=== PATIENT | female | born 1965 | race Caucasian/White ===

== ENCOUNTER → 2019-12-29 15:38 | Outpatient (BNVA) | payer OTHER, SELFPAY | PROVIDERS: Family Provider Internal Medicine; Visit Provider Dermatology | DX: L57.0 Actinic keratosis (principal); D23.9 Other benign neoplasm of skin, unspecified; L73.8 Other specified follicular disorders; D36.9 Benign neoplasm, unspecified site; Z80.8 Family history of malignant neoplasm of other organs or systems | CPT/HCPCS: 17000; 17003; 99203 ==

== ENCOUNTER → 2020-03-07 15:55 | Outpatient (BNVA) | payer OTHER, SELFPAY | PROVIDERS: Family Provider Internal Medicine; PCP Nurse Practitioner Family; Referring Provider Nurse Practitioner Family; Visit Provider Internal Medicine | DX: E04.2 Nontoxic multinodular goiter (principal); R53.83 Other fatigue | CPT/HCPCS: 99203 ==

== ENCOUNTER → 2020-03-21 13:10 | Outpatient (BNVA) | payer OTHER, SELFPAY | PROVIDERS: Family Provider Internal Medicine; PCP Nurse Practitioner Family; Referring Provider Nurse Practitioner Family; Visit Provider Nurse Practitioner Family | DX: N30.20 Other chronic cystitis without hematuria (principal) | CPT/HCPCS: 81003 ==

== ENCOUNTER → 2020-05-03 15:12 | Outpatient (BNVA) | payer OTHER, SELFPAY | PROVIDERS: Family Provider Internal Medicine; PCP Nurse Practitioner Family; Visit Provider Urology | DX: N39.0 Urinary tract infection, site not specified (principal) | CPT/HCPCS: 81003 ==

== ENCOUNTER 2020-05-30 15:06 | Outpatient (CLI) | payer OTHER, SELFPAY ==
--- NOTE | 2020-05-30 15:12 | MM_ITS ---
WS: [id number] SCREENING DIGITAL MAMMOGRAM WITH CAD HISTORY: SCREENING COMPARISON: 08/31/2018 and 11/09/2012 and 04/08/2016 Bilateral CC and MLO views submitted. Computer aided detection analyzed. Breast composition: There are scattered areas of fibroglandular density. No suspicious masses, microc alcifications or architectural distortion. MM/[place] [id number] IMPRESSION: BI-RADS: 1-Negative FOLLOW UP: 1 Year Follow-up
--- NOTE | 2020-05-30 15:42 | XR_ITS ---
WS: [id number] SCREENING DEXA SCAN [employer] CLINICAL INFORMATION: POST MENOPAUSAL COMPARISON: None. FINDINGS: The L1-L4 bone mineral density measures 1.331 g/cm2. This corresponds to a T score score of 1.3 and Z score of 1.4. Left femoral neck bone mineral density measures 1.036 g/cm2. This corresponds to a T score of 0.2 and Z score of 0.4. Right femoral neck bone mineral density measures 1.099 g/cm2. This corresponds to a T score 0.7of and Z score of 0.9. Mean femoral neck bone mineral density measures 1.067 g/cm2. This corresponds to a T score of 0.5 and Z score of 0.7. XR/XR DEXA axial skeleton* [id number] IMPRESSION: Normal bone mineralization. Patient's FRAX calculated 10 year probability for major osteoporotic fracture i s 4.8 % and osteoporotic hip fracture is 0.1%.
== END 2020-05-30 15:07 | disposition home or self-care (01) ==
LOC: RADSHAW 15:10
PROVIDERS: PCP Nurse Practitioner Family; Visit Provider Nurse Practitioner Family
DX: Z12.31 Encounter for screening mammogram for malignant neoplasm of breast (principal); Z78.0 Asymptomatic menopausal state
CPT/HCPCS: 77067; 77080

== ENCOUNTER → 2020-08-02 15:48 | Outpatient (BNVA) | payer OTHER, SELFPAY | PROVIDERS: PCP Nurse Practitioner Family; Visit Provider Urology | DX: N39.0 Urinary tract infection, site not specified (principal) | CPT/HCPCS: 81003 ==

== ENCOUNTER → 2020-10-03 16:05 | Outpatient (BNVA) | payer OTHER, SELFPAY | PROVIDERS: PCP Nurse Practitioner Family; Visit Provider Urology | DX: N39.0 Urinary tract infection, site not specified (principal) | CPT/HCPCS: 81003 ==

== ENCOUNTER → 2021-01-09 16:16 | Outpatient (BNVA) | payer OTHER, SELFPAY | PROVIDERS: PCP Nurse Practitioner Family; Visit Provider Urology | DX: N39.0 Urinary tract infection, site not specified (principal) | CPT/HCPCS: 81003 ==

== ENCOUNTER 2021-02-23 07:39 | Day surgery (SDC) | payer OTHER, SELFPAY ==
[2021-02-20 10:24] VITALS: BMI 29.1
--- NOTE | 2021-02-23 07:48 | ANES.PREANE2 ---
Pre-Anesthetic Assessment Pre-Anesthetic Assessment: Height/Weight: Height 1.7 m Weight 84.368 kg Preop Diagnosis: abdominal pain Proposed Procedure: Operation Date: 02/23/21 09:15 Proposed Procedures p EGD K90.0 K21.00(Not Applicable) - Mina Salinas MD Familial anesthetic complications: none Was Beta Krystian taken within 24 hours: N/A Was Clonidine taken within 24 hours: N/A Last intake: > 8 hrs Social: Social History: No alcohol and No tobacco Exam: Pre-Anes Outpt Exam: alert, oriented x 3, clear to auscultation bilaterally and regular rate & rhythm Airway: Cervical ROM: WNL MP: 1 Dentition: Partials GI: Comments: celiac's disease Anesthetic Plan: ASA status: 2 Anesthesia: MAC Risk of > 500 ml blood loss (7ml/kg in children): No PFSH Anesthesia PFSH: Medical History Anxiety Chronic osteoarthritis Cystitis Depression GERD (gastroesophageal reflux disease) IBS (irritable bowel syndrome) Multiple thyroid nodules No pertinent past medical history Recurrent UTI Restless legs syndrome (RLS) Thyroid enlarged Surgical History Hx of bladder repair surgery Hx of breast biopsy Hx of hysterectomy Family History Father CAD (coronary artery disease) Social History Smoking and tobacco status: former smoker Alcohol intake: never Adopted: No Caregiver/support person: No Lives independently: No Marital status: / Data Anesthesia Cardiac Studies: No Data to Display
[2021-02-23 08:09] VITALS: BP 112/59; PULSE 63; RESP 18; TEMP 36.1; O2SAT 97
[2021-02-23] MEDS: sodium chloride 0.9% 1,000 ML 30 ML IV (08:09)
--- NOTE | 2021-02-23 09:52 | P.HP_ITS ---
Providers/Chief Complaint Primary Care Provider: HEIDI Newton Chief Complaint: egd History of Present Illness Lindsey Alexander is a 55 year old female Review of Systems General: Reports: 10 or more systems reviewed and unremarkable except in HPI and below Const: Denies: fever(s) Card: Denies: chest pain or irregular heart rhythm Resp: Denies: dyspnea GI: Reports: heartburn Medications/Allergies Home Medications Medication Instructions Recorded Confirmed Last Taken Type lactobacillus combination no.8 3 3,000 mmu cells PO DAILY 05/03/20 02/20/21 02/22/21 History billion cell capsule multivitamin 1 tab PO DAILY 01/09/21 02/20/21 Unknown History nitrofurantoin monohyd/m-cryst 100 mg PO DAILY 02/20/21 02/20/21 02/22/21 History Allergies Allergy/AdvReac Type Severity Reaction Status Date / Time No Known Allergies Allergy Verified 02/23/21 08:07 PFSH PFSH: Medical History (Updated 02/23/21 @ 10:14 by Mina Salinas MD) Anxiety Chronic osteoarthritis Cystitis Depression GERD (gastroesophageal reflux disease) IBS (irritable bowel syndrome) Multiple thyroid nodules No pertinent past medical history Recurrent UTI Restless legs syndrome (RLS) Thyroid enlarged Surgical History Hx of bladder repair surgery Hx of breast biopsy Hx of hysterectomy Family History Father CAD (coronary artery disease) Social History Smoking and tobacco status: former smoker Alcohol intake: never Adopted: No Caregiver/support person: No Lives independently: No Marital status: / Dietary Habits: Caffeine: Yes Vital Signs Vitals Signs: Last Vital Signs Temp 97.0 F L 02/23/21 08:09 Pulse 63 02/23/21 08:09 Resp 18 02/23/21 08:09 BP 112/59 02/23/21 08:09 Pulse Ox 97 02/23/21 08:09 Physical Exam Const: COMMON NORMALS: no acute distress and patient oriented x3 GENERAL APPEARANCE: cooperative, comfortable and well developed HENMT: COMMON NORMALS: normocephalic and moist oral mucous membranes HEAD & SCALP: normocephalic Chest: COMMONS NORMALS: normal inspection of the chest Resp: COMMON NORMALS: normal respiratory effort and clear to auscultation bilaterally AUSCULTATION: clear to auscultation bilaterally Cardio: COMMON NORMALS: regular rate, regular rhythm, No gallops present (Cardio), No murmurs present (Cardio) and No rub (Cardio) RATE: regular rate RHYTHM: regular rhythm Extremity: COMMON NORMALS: normal to inspection Neuro: COMMON NORMALS: patient oriented x3 and no focal motor deficits Skin: COMMON NORMALS: no rashes or lesions noted GENERAL SKIN EXAM: no rashes or lesions noted A&P Assessment and plan (1) GERD (gastroesophageal reflux disease): We discussed the risks of the procedure including the risks of bleeding and perforation. The patient had no further questions and wishes to proceed. Status: Acute (2) Celiac sprue: Status: Acute Coding Level of Care Code Acute Microbiology Quality Control Technician for [facility] Diagnoses GERD (gastroesophageal reflux disease) K21.9 Celiac sprue K90.0
[2021-02-23 10:15] VITALS: BP 97/72; PULSE 66; RESP 18; TEMP 36.1; O2SAT 96
[2021-02-23 10:26] VITALS: BP 98/62; PULSE 59; RESP 20; O2SAT 97
--- NOTE | 2021-02-23 12:21 | ANE.PACU2 ---
Inpatient post-anesthesia follow up: Airway intact: Yes Vital signs: Temperature 97.0 F Pulse Rate 59 Respiratory Rate 20 Blood Pressure 98/62 Pulse Oximetry 97 Oxygen Delivery Me thod Room Air Oxygen Flow Rate Fraction of Inspir ed Oxygen Hydration adequate: Yes Nausea and vomiting: No Pain level: 1 Mental status: Baseline
== END 2021-02-23 10:40 | disposition home or self-care (01) ==
PROVIDERS: PCP Nurse Practitioner Family; Visit Provider Family Medicine
PROC: 0DJ08ZZ Inspection of Upper Intestinal Tract, Via Natural or Artificial Opening Endoscopic (ICD-10-PCS; CPT 43235; principal; 2021-02-23 09:15)
DX: K21.9 Gastro-esophageal reflux disease without esophagitis (principal); K90.0 Celiac disease; K29.80 Duodenitis without bleeding; F41.9 Anxiety disorder, unspecified; F32.9 Major depressive disorder, single episode, unspecified; Z82.49 Family history of ischemic heart disease and other diseases of the circulatory system; Z87.891 Personal history of nicotine dependence
CPT/HCPCS: 12345; 43239; 88305; 96360; J2704; J7030

== ENCOUNTER → 2021-03-20 16:28 | Outpatient (BNVA) | payer OTHER, SELFPAY | PROVIDERS: PCP Nurse Practitioner Family; Visit Provider Nurse Practitioner Family | DX: N39.0 Urinary tract infection, site not specified (principal) | CPT/HCPCS: 81003 ==

== ENCOUNTER 2021-08-10 14:38 | Outpatient (CLI) | payer OTHER, SELFPAY ==
--- NOTE | 2021-08-10 14:46 | MM_ITS ---
WS: [id number] BILATERAL 3D TOMOSYNTHESIS DIGITAL SCREENING MAMMOGRAPHY WITH CAD CLINICAL INFORMATION: SCREENING HISTORY: Screening mammogram. No current complaints. COMPARISON: May 30, 2020 TECHNIQUE: Bilateral CC and MLO views. FINDINGS: Scattered fibroglandular densities bilaterally. Benign lucent centered calcification RIGHT breast. St able intramammary lymph node upper outer RIGHT breast. No suspicious focal mass, asymmetry, calcifica tions, or architectural distortion. No evidence of malignancy. MM/[place] [id number] IMPRESSION: BI-RADS: 2-Benign FOLLOW UP: 1 Year Follow-up Recommend return to annual screening mammography.
== END 2021-08-10 14:39 | disposition home or self-care (01) ==
LOC: RADSHAW 14:41
PROVIDERS: PCP Nurse Practitioner Family; Visit Provider Nurse Practitioner Family
DX: Z12.31 Encounter for screening mammogram for malignant neoplasm of breast (principal)
CPT/HCPCS: 77063; 77067

== ENCOUNTER 2022-07-04 16:17 | Emergency (ER) | payer OTHER, SELFPAY ==
[2022-07-04 16:23] VITALS: BP 141/81; PULSE 66; RESP 18; TEMP 36.7; O2SAT 97
--- NOTE | 2022-07-04 16:26 | ECG_ITS ---
[facility] Test Date: 2022-07-04 Pat Name: Lindsey Alexander Department: Room: Gender: Female Geriatric Physical Therapist: : 1965 Requested By: Jon Ngo Order Number: [id number] Malathi MD: Mindy Bonilla M.D. Measurements Intervals [place] Rate: 64 P: 49 [place]: 158 QRS: 37 QRSD: 90 T: 55 QT: 422 QTc: 437 Interpretive Statements SINUS RHYTHM Compared to ECG 04/03/2018 21:00:30 Sinus bradycardia no longer present Electronically Signed On 07-05-2022 7:54:42 LIBRARY CLERK TALKING BOOKS by Mindy Bonilla M.D. [id number]
--- NOTE | 2022-07-04 18:47 | XRR_ITS ---
PROCEDURE INFORMATION: Exam: XR Chest Exam date and time: 07/04/2022 7:05 PM Age: 57 years old Clinical indication: Pain; Chest pressure; Additional info: Cp on left side, dizzy, since today TECHNIQUE: Imaging protocol: Radiologic exam of the chest. Views: 1 view. COMPARISON: CR XR ribs RT mn 3V w CXR1V [id number] 08/30/2020 4:16 PM FINDINGS: Lungs: Unremarkable. No consolidation. Pleural spaces: Unremarkable. No pleural effusion. No pneumothorax. Heart/Mediastinum: Unremarkable. No cardiomegaly. Bones/joints: Unremarkable. XR/XR chest 1V portable [id number] IMPRESSION: No acute findings.
--- NOTE | 2022-07-04 19:12 | W.ED.CHESTPA ---
HPI - Chest Pain General: Chief Complaint: Chest Pain Stated Complaint: chest pain Time Seen by Provider: 07/04/22 19:02 History of Present Illness: Ms. Alexander is a 57-year-old lady with thyroid disorder presenting to the emergency department for chest pain. She reports a few day history of generalized not feeling well, she describes an unsteady feeling and pain in the left ear as well as headaches which are not typical for her. She was seen in clinic earlier and diagnosed with ear infection however also reported that she had some chest discomfort radiating to left shoulder blade from the substernal region associated with paresthesias in the left arm and was referred to the emergency department for further evaluation. Denies frequent similar episodes in the past. Does have a remote history of smoking though no longer smokes and also endorses positive family history for early coronary artery disease Onset (ago): day(s) Timing of current episode: constant Prior episodes: No Onset: during rest Pain location: substernal Pain radiation: left arm, left shoulder and left scapula Severity: moderate Relieving factors: nothing Exacerbating factors: nothing Review of Systems General: Reports: 10 or more systems reviewed and unremarkable except in HPI and below PFSH ED PFSH: Medical History Anxiety Chronic osteoarthritis Cystitis Depression GERD (gastroesophageal reflux disease) IBS (irritable bowel syndrome) Multiple thyroid nodules No pertinent past medical history Recurrent UTI Restless legs syndrome (RLS) Thyroid enlarged Surgical History Hx of bladder repair surgery Hx of breast biopsy Hx of hysterectomy Family History Father CAD (coronary artery disease) Social History Smoking and tobacco status: former smoker Alcohol intake: never Adopted: No Caregiver/support person: No Lives independently: No Marital status: / Physical Exam Const: COMMON NORMALS: patient oriented x3 and alert GENERAL APPEARANCE: cooperative and well developed HENMT: COMMON NORMALS: normocephalic, atraumatic and TM's normal bilaterally HEAD & SCALP: normocephalic and atraumatic TYMPANIC MEMBRANE: TM's normal bilaterally THROAT: posterior oropharynx normal Eye: COMMON NORMALS: conjunctivae normal CONJUNCTIVA: Yes conjunctivae normal SCLERA: sclerae normal Neck/C-Spine: COMMON NORMALS: supple GENERAL: Yes trachea midline Resp: COMMON NORMALS: clear to auscultation bilaterally EFFORT & INSPECTION: Yes able to speak in complete sentences AUSCULTATION: clear to auscultation bilaterally Cardio: COMMON NORMALS: regular rate and regular rhythm RATE: regular rate RHYTHM: regular rhythm GI: COMMON NORMALS: Soft to palpation PALPATION: Yes Soft to palpation and No Tenderness to palpation present (GI) PERCUSSION: normal to percussion Extremity: GENERAL: Yes normal exam except as noted and No edema Neuro: COMMON NORMALS: patient oriented x3, CN's II-XII intact bilaterally, moves all extremities, no focal motor deficits and no sensory deficits noted SENSORIUM/ORIENTATION: Yes alert and No Orientation impaired Psych: COMMON NORMALS: mental status grossly normal and Normal thought process present THOUGHT PROCESS: Normal thought process present Course Vital Signs: Vital signs: Vital Signs Temperature 98.1 F 07/04/22 16:23 Pulse Rate 59 L 07/04/22 22:00 Respiratory Rate 16 07/04/22 22:00 Blood Pressure 123/66 07/04/22 22:00 Pulse Oximetry 96 07/04/22 22:00 Oxygen Delivery Me thod 07/04/22 20:30 MDM - Chest Pain Medical Decision Making 57-year-old lady presenting with chest pain and generalized illness. She is currently being treated for an ear infection and is on antibiotics. Patient is nontoxic on exam. EKG notable for sinus rhythm, bradycardia, normal axis and intervals, no STEMI. Similar to prior. No significant hematologic or metabolic abnormalities. Initial and 2-hour delta troponin negative. Chest x-ray with no lobar consolidation or pneumothorax. CT head negative for acute intracranial pathology. Most likely etiology of patient's symptoms is unclear. She is low risk by heart score. Neurologic symptoms likely secondary to otitis media. Patient feels improved with fluids. The results of ED evaluation were discussed with the patient including prescriptions and/or symptomatic cares (if applicable) including appropriate and responsible use, followup plan, and return precautions. The patient verbalized understanding and felt safe for discharge. Medical Records I reviewed the patient's medical records. Lab Data I reviewed the patient's lab results. 07/04/22 19:28 Radiology Impressions Chest X-Ray 07/04/22 18:47 IMPRESSION: No acute findings. Head CT 07/04/22 19:30 IMPRESSION: No acute intracranial abnormality. Laboratory Results WBC 6.0 10^3/uL (4.0-10.0) 07/04/22 19: RBC 4.05 10^6/uL (4.1-5.3) L 07/04/22: Hgb 12.3 g/dL (11.5-15.3) 07/04/22: Hct 37.1 % (37.0-47.0) 07/04/22: MCV 91.6 fl (81-99) 07/04/22: MCH 30.4 pg (28.0-34.0) 07/04/22: MCHC 33.2 g/dL (30.0-36.0) 07/04/22: RDW 13.2 % (12.1-15.1) 07/04/22: Plt Count 243 10^3/cmm (130-400) 07/04/22: MPV 11.9 fL (7.4-10.4) H 07/04/22: Neut % (Auto) 38.2 % 07/04/22: Lymph % (Auto) 48.2 % 07/04/22: [place] % (Auto) 9.9 % 07/04/22: Eos % (Auto) 2.8 % 07/04/22: Baso % (Auto) 0.7 % 07/04/22: Neut # (Auto) 2.31 10^3/uL (1.8-7.7) 07/04/22: Lymph # (Auto) 2.9 10^3/uL (0.8-4.8) 07/04/22: [place] # (Auto) 0.6 10^3/uL (0.2-0.9) 07/04/22 19: Eos # (Auto) 0.2 10^3/uL (0.0-0.8) 07/04/22: Baso # (Auto) 0.0 10^3/uL (0.0-0.1) 02/09/23 19:28 Nucleated RBC % (auto) 0 % 07/04/22 19:28 Nucleated RBCs # 0.0 /100WBC 07/04/22 19:28 Sodium 141 mmol/L (136-145) 07/04/22 19:28 Potassium 4.2 mmol/L (3.5-5.1) 07/04/22 19:28 Chloride 105 mmol/L (98-107) 07/04/22 19:28 Carbon Dioxide 26 mmol/L (22-29) 07/04/22 19:28 Anion Gap 14.2 (5-19) 07/04/22 19:28 BUN 11 mg/dL (6-20) 07/04/22 19:28 Creatinine 0.8 mg/dL (0.5-0.9) 07/04/22 19: GFR Calculation 73.9 mL/min (90-130) L 07/04/22 19:28 Glucose 96 mg/dL (65-115) 07/04/22 19:28 Calculated Osmolality 291 mOsm/kg (285-295) 07/04/22 19:28 Calcium 9.1 mg/dL (8.5-10.5) 07/04/22 19:28 Total Bilirubin 0.3 mg/dL (0.15-1.2) 07/04/22 19:28 AST 26 U/L (0-32) 07/04/22 19:28 ALT 25 U/L (0-33) 07/04/22 19:28 Alkaline Phosphatase 83 U/L (35-105) 07/04/22 19:28 Troponin T Baseline 6 ng/L (0-10) 07/04/22 19:28 Troponin T 120 Minute 6.52 ng/L (0-10) 07/04/22 21:00 Delta Troponin T 0.52 ABS# (0-10) 07/04/22 21:00 Total Protein 7.2 g/dL (6.6-8.7) 07/04/22 19:28 Albumin 4.5 g/dL (3.5-5.2) 07/04/22 19:28 Globulin 2.7 g/dL (1.3-4.6) 07/04/22 19:28 Lipase 49 U/L (13-60) 07/04/22 19:28 TSH 2.65 uIU/mL (0.27-4.20) 07/04/22 19:28 Discharge Plan Discharge Patient Disposition: Home Clinical Impression: Headache, Chest pain, Acute otitis media Condition: Stable Prescriptions: No Action multivitamin Tablet 1 tab PO DAILY omega-3 fatty acids 1,000 mg capsule 1,000 mg PO DAILY Adult Probiotic 3 billion cell capsule 3,000 mmu cells PO DAILY Rx Instructions: administer with a meal Discharge Orders: Discharge ED (Routine); Ordered 07/04/22 Ordered By: Micheal Varela Referrals: Merry Flower FNP [Primary Care Provider] - Discharge Diet: Usual diet Discharge Activity: Resume usual activity Patient Instructions: Chest Pain (ED), Acute Headache (ED) Activity Restrictions/Additional Instructions: Thank you for visiting the emergency department. You are seen and for chest pain, headache, in the context of recently diagnosed ear infection. The exact cause your symptoms is unclear though as discussed you are low risk for major adverse cardiac events. I will message case management for further outpatient testing. Please follow-up with your primary care provider. Return to the emergency department for anything that you are concerned about and feel needs emergency department evaluation. Coding Level of Care Code ED Tomb Maker Helper for Jesenia Fisher
[2022-07-04 19:25] VITALS: BP 120/61; PULSE 67; RESP 20; O2SAT 97
--- NOTE | 2022-07-04 19:30 | CTR_ITS ---
PROCEDURE INFORMATION: Exam: CT Head Without Contrast Exam date and time: 07/04/2022 7:49 PM Age: 57 years old Clinical indication: Weakness, extremity; Left; Additional info: Dizzy, L arm paresthesia, headache TECHNIQUE: Imaging protocol: Computed tomography of the head without contrast. Radiation optimization: All CT scans at this facility use at least one of these dose optimization techniques: automated exposure control; mA and/or kV adjustment per patient size (includes targeted exams where dose is matched to clinical indication); or iterative reconstruction. Other protocol: This patient has received 0 known CTs and 0 known cardiac nuclear medicine studies in the 12 months prior to the current study. COMPARISON: US soft tissue head neck [id number] 01/10/2017 8:27 AM RADIATION DOSE METRICS: Total DLP (mGy-cm): 1066.98 FINDINGS: Brain: Normal. No hemorrhage. Unremarkable white matter. No mass effect. Cerebral ventricles: No ventriculomegaly. Paranasal sinuses: Visualized sinuses are unremarkable. No fluid levels. Mastoid air cells: Visualized mastoid air cells are well aerated. Bones/joints: Unremarkable. No acute fracture. Soft tissues: Unremarkable. CT/CT head wo con* [id number] IMPRESSION: No acute intracranial abnormality.
[2022-07-04] MEDS: sodium chloride 0.9% 1,000 ML 999 ML IV (19:34)
[2022-07-04 19:54] LABS: Basophils % 0.7 %; Eosinophils # 0.2 10^3/uL (0.0-0.8); Eosinophils % 2.8 %; Hematocrit 37.1 % (37.0-47.0); Hemoglobin 12.3 g/dL (11.5-15.3); Lymphocytes # 2.9 10^3/uL (0.8-4.8); Lymphocytes % 48.2 %; Mean Corpuscular HGB Conc 33.2 g/dL (30.0-36.0); Mean Corpuscular Hemoglobin 30.4 pg (28.0-34.0); Mean Corpuscular Volume 91.6 fl (81-99); Mean Platelet Volume 11.9 fL (7.4-10.4); Monocytes # 0.6 10^3/uL (0.2-0.9); Monocytes % 9.9 %; Neutrophils # 2.31 10^3/uL (1.8-7.7); Neutrophils % 38.2 %; Nucleated Red Blood Cells % 0 %; Platelet Count 243 10^3/cmm (130-400); Red Blood Count 4.05 10^6/uL (4.1-5.3); Red Cell Distribution Width 13.2 % (12.1-15.1)
[2022-07-04 20:04] LABS: Alanine Aminotransferase 25 U/L (0-33); Albumin Level 4.5 g/dL (3.5-5.2); Alkaline Phosphatase 83 U/L (35-105); Anion Gap 14.2 (5-19); Aspartate Amino Transferase 26 U/L (0-32); Blood Urea Nitrogen 11 mg/dL (6-20); Calcium 9.1 mg/dL (8.5-10.5); Carbon Dioxide 26 mmol/L (22-29); Chloride 105 mmol/L (98-107); Globulin 2.7 g/dL (1.3-4.6); Glomerular Filtration Rate 73.9 mL/min (90-130); Glucose 96 mg/dL (65-115); Lipase 49 U/L (13-60); Osmolality Calculated 291 mOsm/kg (285-295); Potassium 4.2 mmol/L (3.5-5.1); Sodium 141 mmol/L (136-145); Thyroid Stimulating Hormone 2.65 uIU/mL (0.27-4.20); Total Bilirubin 0.3 mg/dL (0.15-1.2); Total Protein 7.2 g/dL (6.6-8.7)
--- NOTE | 2022-07-04 20:05 | ECG_ITS ---
[facility] Test Date: 2022-07-04 Pat Name: Lindsey Alexander Department: Room: Gender: Female Customer Sales Distributor: : 1965 Requested By: Loren Myers Order Number: [id number] Malathi MD: Mindy Bonilla M.D. Measurements Intervals [place] Rate: 59 P: 61 CT: 165 QRS: 43 QRSD: 96 T: 55 QT: 433 QTc: 430 Interpretive Statements SINUS BRADYCARDIA Compared to ECG 07/04/2022 16:36:05 Sinus rhythm no longer present Electronically Signed On 07-05-2022 7:52:29 FRONTEND ENGINEER by Mindy Bonilla M.D. [id number]
[2022-07-04 20:18] LABS: Troponin(5th) Baseline 6 ng/L (0-10)
[2022-07-04 20:30] VITALS: BP 120/60; PULSE 69; RESP 15; O2SAT 92
--- NOTE | 2022-07-04 20:47 | ECG_ITS ---
[facility] Test Date: 2022-07-04 Pat Name: Lindsey Alexander Department: Room: Gender: Female Pmo Analyst: : 1965 Requested By: Loren Myers Order Number: [id number] Malathi MD: Mindy Bonilla M.D. Measurements Intervals [place] Rate: 58 P: 51 [place]: 163 QRS: 45 QRSD: 96 T: 57 QT: 464 QTc: 457 Interpretive Statements SINUS BRADYCARDIA POSSIBLE INFERIOR MYOCARDIAL INFARCTION , PROBABLY OLD [30 ms Q WAVE IN II/aVF] Compared to ECG 07/04/2022 20:05:38 Myocardial infarct finding now present Electronically Signed On 07-05-2022 8:12:44 PROFESSOR OF ARCHAEOLOGY by Mindy Bonilla M.D. [id number]
[2022-07-04 21:38] LABS: Troponin 5 2HR 6.52 ng/L (0-10)
[2022-07-04 21:41] LABS: Troponin 5 2HR Delta 0.52 ABS# (0-10)
[2022-07-04 22:00] VITALS: BP 123/66; PULSE 59; RESP 16; O2SAT 96
== END 2022-07-04 22:01 | disposition home or self-care (01) ==
PROVIDERS: Emergency Medicine; Emergency Provider Emergency Medicine; PCP Nurse Practitioner Family
DX: R07.9 Chest pain, unspecified (principal); R51.9 Headache, unspecified; H66.92 Otitis media, unspecified, left ear; Z87.891 Personal history of nicotine dependence
CPT/HCPCS: 70450; 71045; 80053; 83690; 84443; 84484; 85025; 93005; 96360; 99285; J7030

== ENCOUNTER → 2022-10-29 15:58 | Outpatient (BNVA) | payer OTHER, SELFPAY | PROVIDERS: PCP Nurse Practitioner Family; Referring Provider Nurse Practitioner Family; Visit Provider Orthopaedic Surgery | DX: M54.9 Dorsalgia, unspecified (principal); M54.50 Low back pain, unspecified | CPT/HCPCS: 72110 ==

== ENCOUNTER 2022-12-06 13:31 | Outpatient (CLI) | payer OTHER, SELFPAY ==
--- NOTE | 2022-12-06 13:45 | MR_ITS ---
WS: [id number] MRI LUMBAR SPINE NONCONTRAST TECHNIQUE: Sagittal T1, T2 and STIR imaging. Axial T1 and T2 imaging. CLINICAL INFORMATION: M54.9 - Dorsalgia, unspecified. COMPARISON: None. FINDINGS: Mild lumbar curve. No acute compression. Disc bulging worse at L3-L5. No high-grade central canal herbert nosis. L1-L2: Mild annular bulging with endplate Schmorl's nodes. Mild facet arthropathy. Spinal canal and f oramen are patent. L2-L3: Mild annular bulging. Moderate facet arthropathy with ligamentum flavum hypertrophy. Mild cent ral canal stenosis. Narrowing of the subarticular recess bilaterally. Foramen are patent. L3-L4: Mild annular bulging with slight impingement on the LEFT subarticular recess and traversing LE FT L4 nerve root. Recommend correlation LEFT L4 nerve root symptoms. Moderate facet arthropathy. Mild bilateral foraminal narrowing RIGHT greater than LEFT. L4-L5: Mild disc bulging with mild central canal stenosis. Slight impingement traversing L5 nerve catherine ts bilaterally. RIGHT foraminal protrusion slightly impinges the exiting RIGHT L4 nerve root. Mild RI GHT foraminal narrowing. LEFT foramen is patent. L5-S1: Mild disc osteophyte complex with endplate ridging. Slight impingement on the traversing S1 ne rve root in the subarticular recess. Moderate facet arthropathy. Moderate RIGHT and no significant LE FT foraminal narrowing. Visualized pelvic bony structures: Normal. Paravertebral soft tissues: Normal. MR/MR lumbar spine wo con* [id number] IMPRESSION: 1. Mild central canal stenosis L2-L3 and L4-L5 due to disc bulging in combinat ion with facet arthropathy and ligamentum flavum hypertrophy. 2. Disc bulging L3-L4 with slight impingement on the LEFT subarticular recess and traversing LEFT L4 nerve root. 3. Disc osteophyte complex L5-S1 impinges the RIGHT S1 nerve root in the subar ticular recess. 4. Small RIGHT foraminal protrusion L3-L4 slightly impinges the exiting RIGHT L3 nerve root proximally. 5. Mild to moderate RIGHT L4-L5 and moderate RIGHT L5-S1 foraminal narrowing w ith impingement on the exiting RIGHT L4 and RIGHT L5 nerve roots respectively. 6. Moderate facet arthropathy worse at L2-L3 and L5-S1.
== END 2022-12-06 13:32 | disposition home or self-care (01) ==
PROVIDERS: PCP Nurse Practitioner Family; Visit Provider Orthopaedic Surgery
DX: M48.061 Spinal stenosis, lumbar region without neurogenic claudication (principal); M51.36 Other intervertebral disc degeneration, lumbar region; M51.26 Other intervertebral disc displacement, lumbar region
CPT/HCPCS: 72148

== ENCOUNTER 2022-12-27 13:43 | Outpatient (CLI) | payer OTHER, SELFPAY ==
--- NOTE | 2022-12-27 13:49 | MM_ITS ---
WS: [id number] BILATERAL 3D TOMOSYNTHESIS DIGITAL SCREENING MAMMOGRAPHY WITH CAD CLINICAL INFORMATION: SCREENING HISTORY: Screening mammogram. No current complaints. COMPARISON: 2021 TECHNIQUE: Bilateral CC and MLO views. FINDINGS: Scattered fibroglandular densities bilaterally. No suspicious focal mass, asymmetry, calcifications, or architectural distortion. No evidence of malignancy. A few incidental punctate and lucent centered calcifications. MM/[place] [id number] IMPRESSION: BI-RADS: 2-Benign FOLLOW UP: 1 Year Follow-up Recommend return to annual screening mammography.
== END 2022-12-27 13:44 | disposition home or self-care (01) ==
LOC: RAD 13:47 → MOBLMAM 13:48
PROVIDERS: PCP Nurse Practitioner Family; Visit Provider Nurse Practitioner Family
DX: Z12.31 Encounter for screening mammogram for malignant neoplasm of breast (principal)
CPT/HCPCS: 77063; 77067

== ENCOUNTER → 2023-04-09 14:57 | Outpatient (BNVA) | payer OTHER, SELFPAY | PROVIDERS: PCP Nurse Practitioner Family; Visit Provider Registered Nurse Neonatal Intensive Care | DX: R10.9 Unspecified abdominal pain (principal) | CPT/HCPCS: 81000 ==

== ENCOUNTER → 2023-11-07 07:56 | Outpatient (BNVA) | payer OTHER, SELFPAY | PROVIDERS: PCP Nurse Practitioner Family; Visit Provider Podiatrist Foot & Ankle Surgery | DX: M79.671 Pain in right foot (principal); M79.672 Pain in left foot; M21.612 Bunion of left foot; B35.1 Tinea unguium | CPT/HCPCS: 73630 ==

== ENCOUNTER 2024-01-27 15:07 | Outpatient (CLI) | payer OTHER, SELFPAY ==
[2024-01-27 16:11] LABS: Basophils % 0.7 %; Eosinophils # 0.1 10^3/uL (0.0-0.8); Eosinophils % 2.3 %; Lymphocytes # 2.3 10^3/uL (0.8-4.8); Lymphocytes % 39.2 %; Mean Corpuscular HGB Conc 33.3 g/dL (30-55); Mean Corpuscular Hemoglobin 31.4 pg (27-33); Mean Corpuscular Volume 94.2 fl (85-98); Mean Platelet Volume 11.5 fL (7.4-10.4); Monocytes # 0.4 10^3/uL (0.2-0.9); Monocytes % 6.7 %; Neutrophils # 3.03 10^3/uL (1.8-7.7); Neutrophils % 50.8 %; Nucleated Red Blood Cells % 0 %; Platelet Count 228 10^3/cmm (157-399); Red Blood Count 3.82 10^6/uL (3.85-5.65); Red Cell Distribution Width 13.1 % (12.1-15.1); White Blood Count 5.97 10^3/uL (3.29-11.43)
[2024-01-27 16:14] LABS: Erythrocyte Sedimentation Rate 1 mm/hr (0-15)
[2024-01-27 16:41] LABS: Alanine Aminotransferase 21 U/L (0-33); Albumin Level 4.3 g/dL (3.5-5.2); Alkaline Phosphatase 77 U/L (35-105); Aspartate Amino Transferase 26 U/L (0-32); Creatine Phosphokinase 133 U/L (26-192); Globulin 2.7 g/dL (1.3-4.6); Glomerular Filtration Rate 56.9 mL/min (90-130); Total Bilirubin 0.2 mg/dL (0.15-1.2)
== END 2024-01-27 15:08 | disposition home or self-care (01) ==
LOC: LAB 15:09
PROVIDERS: PCP Nurse Practitioner Family; Visit Provider Internal Medicine Rheumatology
DX: Z79.899 Other long term (current) drug therapy (principal); M19.90 Unspecified osteoarthritis, unspecified site
CPT/HCPCS: 36415; 80076; 82085; 82550; 82565; 83520; 84182; 85025; 85651; 86140; 86235

== ENCOUNTER 2024-05-12 07:48 | Outpatient (CLI) | payer OTHER, SELFPAY ==
--- NOTE | 2024-05-12 07:50 | MM_ITS ---
WS: [id number] Bilateral screening 3D tomosynthesis digital mammogram, 05/12/2024 7:59 AM Clinical Data: SCREENING Comparison: 12/27/2022, 08/10/2021, 05/30/2020, 08/31/2018, 04/08/2016, 11/14/2014, 11/09/2012, 09/05/2011, 01/25. Findings: No spiculated masses or clustered calcifications are seen. There are no secondary signs of carcinoma . MM/MM scr BI tomosynthesis [id number] Impression: Negative bilateral mammogram unchanged. Recommend annual screening mammograms. BIRADS: 1 - Negative. FOLLOW UP: 1 Year Follow-up DENSITY: There are scattered areas of fibroglandular density. The CAD maturity checker was used
== END 2024-05-12 07:49 | disposition home or self-care (01) ==
LOC: RAD 07:50
PROVIDERS: PCP Nurse Practitioner Family; Visit Provider Nurse Practitioner Family
DX: Z12.31 Encounter for screening mammogram for malignant neoplasm of breast (principal); R92.323 Mammographic fibroglandular density, bilateral breasts
CPT/HCPCS: 77063; 77067